=== PATIENT | female | born 1975 | race Caucasian/White ===

== ENCOUNTER 2023-08-04 04:19 | Emergency (ER) | payer OTHER ==
[~2023-08-04] VITALS: Ht 160 cm; Wt 83.9 kg
[2023-08-04] MEDS ORDERED: FAMOTIDINE (20 MG) 20 MG TABLET ONE (04:52)
[2023-08-04] MEDS ORDERED: FAMOTIDINE (20 MG) 20 MG TABLET PO ONE (05:00)
[2023-08-04 05:19] LABS: BASOPHILS % (AUTO) 0.5 % (0.0-2.0); EOSINOPHILS # (AUTO) 0.2 K/uL (0.0-0.7); EOSINOPHILS % (AUTO) 2.5 % (0.0-6.0); HEMATOCRIT 35 % (33-45); HEMOGLOBIN 11.8 g/dL (11.5-14.8); LYMPHOCYTES # (AUTO) 2.1 K/uL (0.8-4.8); LYMPHOCYTES % (AUTO) 29.4 % (20.0-44.0); MEAN CORPUSCULAR HEMOGLOBIN 30 PG (26.0-33.0); MEAN CORPUSCULAR HGB CONC 34 g/dl (31.0-36.0); MEAN CORPUSCULAR VOLUME 89 fL (82-100); MONOCYTES # (AUTO) 0.6 K/uL (0.1-1.30); MONOCYTES % (AUTO) 8.7 % (2.0-12.0); NEUTROPHILS # (AUTO) 4.3 K/uL (1.8-8.9); NEUTROPHILS % (AUTO) 58.9 % (43.0-81.0); PLATELET COUNT (AUTO) 296 K/uL (150-450); RED BLOOD CELL COUNT(AUTO) 3.96 MIL/uL (4.0-5.2); RED CELL DISTRIBUTION WIDTH 13.4 % (11.5-15.0); WHITE BLOOD COUNT (AUTO) 7.3 K/uL (4.3-11.0)
[2023-08-04 05:24] LABS: CALCIUM, SERUM 8.9 mg/dL (8.5-10.1); CARBON DIOXIDE 24 mmol/L (21-32); CHLORIDE 101 mmol/L (98-107); CREATININE 0.7 mg/dL (0.6-1.3); GLUCOSE 93 mg/dL (74-106); POTASSIUM 3.5 mmol/L (3.5-5.1); SODIUM SERUM 135 mmol/L (136-145); UREA NITROGEN, BLOOD 12 mg/dL (7-18)
[2023-08-04] MEDS ORDERED: FAMO-131 PO (06:08)
[2023-08-04] MEDS ORDERED: LORAZEPAM 1 MG TABLET ONE (06:36)
[2023-08-04] MEDS ORDERED: LORAZEPAM 1 MG TABLET PO ONE (07:00)
[2023-08-04 07:11] VITALS: BP 118/79; TEMP 98; O2SAT 98
== END 2023-08-04 06:40 | disposition home or self-care (01) ==
LOC: ER 04:19
DX: R10.13 Epigastric pain (principal)
CPT/HCPCS: 36415; 71045-TC; 80048-TC; 84484-TC; 85025-TC

== ENCOUNTER 2024-06-18 14:30 | Emergency (ER) | payer OTHER ==
[~2024-06-18] VITALS: Ht 157.5 cm; Wt 113.4 kg
[~2024-06-18 14:30] MED LIST: FAMO-131 PO
[2024-06-18 15:32] LABS: BASOPHILS % (AUTO) 0.6 % (0.0-2.0); EOSINOPHILS # (AUTO) 0.2 K/uL (0.0-0.7); EOSINOPHILS % (AUTO) 2.4 % (0.0-6.0); HEMATOCRIT 36 % (33-45); HEMOGLOBIN 11.9 g/dL (11.5-14.8); LYMPHOCYTES # (AUTO) 2.3 K/uL (0.8-4.8); LYMPHOCYTES % (AUTO) 33.4 % (20.0-44.0); MEAN CORPUSCULAR HEMOGLOBIN 29 PG (26.0-33.0); MEAN CORPUSCULAR HGB CONC 33 g/dl (31.0-36.0); MEAN CORPUSCULAR VOLUME 89 fL (82-100); MONOCYTES # (AUTO) 0.4 K/uL (0.1-1.30); MONOCYTES % (AUTO) 6.5 % (2.0-12.0); NEUTROPHILS # (AUTO) 3.9 K/uL (1.8-8.9); NEUTROPHILS % (AUTO) 57.1 % (43.0-81.0); PLATELET COUNT (AUTO) 298 K/uL (150-450); RED BLOOD CELL COUNT(AUTO) 4.06 MIL/uL (4.0-5.2); RED CELL DISTRIBUTION WIDTH 13.7 % (11.5-15.0); WHITE BLOOD COUNT (AUTO) 6.8 K/uL (4.3-11.0)
[2024-06-18] MEDS ORDERED: LORAZEPAM 1 MG TABLET ONE (15:32)
[2024-06-18] MEDS ORDERED: LORAZEPAM 0.5 MG TABLET ONE (15:33)
[2024-06-18] MEDS: LORAZEPAM 1 MG TABLET PO ONE (15:35)
[2024-06-18 15:45] LABS: MAGNESIUM 2.1 mg/dL (1.8-2.4)
[2024-06-18 15:47] LABS: CALCIUM, SERUM 8.8 mg/dL (8.5-10.1); CARBON DIOXIDE 23 mmol/L (21-32); CHLORIDE 107 mmol/L (98-107); CREATININE 0.8 mg/dL (0.6-1.3); GLUCOSE 100 mg/dL (74-106); POTASSIUM 3.8 mmol/L (3.5-5.1); SODIUM SERUM 140 mmol/L (136-145); UREA NITROGEN, BLOOD 13 mg/dL (7-18)
[2024-06-18 16:00] LABS: NT-PRO BNP 53 pg/mL (0-125); THYROID STIMULATING HORMONE 2.06 uIU/mL (0.358-3.74)
[2024-06-18] MEDS ORDERED: ALPR0.5T PO (18:18)
[2024-06-18 18:32] VITALS: BP 121/69; TEMP 97.9; O2SAT 94
== END 2024-06-18 18:32 | disposition home or self-care (01) ==
LOC: ER 14:30
DX: F41.0 Panic disorder [episodic paroxysmal anxiety] (principal); R00.2 Palpitations; Z79.899 Other long term (current) drug therapy
CPT/HCPCS: 36415; 71045-TC; 80048-TC; 83735-TC; 83880; 84439-TC; 84443-TC; 84484-TC; 85025-TC; 85378-TC